=== PATIENT | female | born 1965 | race Caucasian/White ===

== ENCOUNTER 2017-12-31 05:44 | Emergency (ER) | payer MEDICAID, OTHER ==
[~2017-12-31] VITALS: Ht 165.1 cm; Wt 84.8 kg
[2017-12-31 05:48] VITALS: BP 166/79
[2017-12-31 06:37] LABS: BASOPHILS % (AUTO) 0.4 % (0-1); EOSINOPHILS # (AUTO) 0.1 X10'3 (0-0.9); EOSINOPHILS % (AUTO) 0.6 % (0-6); HEMATOCRIT 29.1 % (35.0-45.0); LYMPHOCYTES % (AUTO) 20.6 % (21-51); MEAN CORPUSCULAR HEMOGLOBIN 30.7 PG (27.0-31.0); MEAN CORPUSCULAR HGB CONC 34.2 % (33.0-36.5); MEAN CORPUSCULAR VOLUME 89.8 FL (78-98); MEAN PLATELET VOLUME 7.1 FL (7.4-10.4); MONOCYTES # (AUTO) 0.9 X10'3 (0-0.9); MONOCYTES % (AUTO) 9.3 % (2-12); NEUTROPHILS # (AUTO) 6.8 X10'3 (1.8-7.7); NEUTROPHILS % (AUTO) 69.1 % (42-75); PLATELET COUNT 370 X10'3 (140-440); RED BLOOD COUNT 3.25 X10'6 (4.20-5.60); RED CELL DISTRIBUTION WIDTH 12.9 % (11.5-14.5); WHITE BLOOD COUNT 9.9 X10'3 (4.5-11.0)
[2017-12-31 06:45] LABS: ALANINE AMINOTRANSFERASE 31 U/L (12-78); ALBUMIN 2.8 G/DL (3.4-5.0); ALBUMIN/GLOBULIN RATIO 0.7 (1.1-1.5); ALKALINE PHOSPHATASE 58 IU/L (46-116); ANION GAP 12 (8-16); ASPARTATE AMINO TRANSFERASE 19 U/L (10-37); BILIRUBIN,TOTAL 0.4 MG/DL (0.1-1.0); BLOOD UREA NITROGEN 13 MG/DL (7-18); BUN/CREATININE RATIO 27.7 (6.6-38.0); CALCIUM 9.4 MG/DL (8.5-10.1); CHLORIDE 107 MMOL/L (99-107); CREATININE 0.47 MG/DL (0.40-0.90); GLUCOSE 116 MG/DL (70-104); POTASSIUM 3.3 MMOL/L (3.5-5.1); SODIUM 144 MMOL/L (135-145); TOTAL CARBON DIOXIDE 24.8 MMOL/L (24-32); TOTAL PROTEIN 7.1 G/DL (6.4-8.2); eGFR > 90 ML/MIN
[2017-12-31 06:50] LABS: INR 1.1 INR; PARTIAL THROMBOPLASTIN TIME 25 SECONDS (22-32); PROTHROMBIN TIME 11.4 SECONDS (9.0-12.0)
== END 2017-12-31 10:52 | disposition left against medical advice (07) ==
LOC: ER 05:45
DX: R07.9 Chest pain, unspecified (principal); Z53.21 Procedure and treatment not carried out due to patient leaving prior to being seen by health care provider
CPT/HCPCS: 36415; 71045; 80053; 84484; 85025; 85610; 85730; 93005; 99281

== ENCOUNTER 2018-03-14 11:42 | Inpatient (IN) | payer MEDICAID, OTHER ==
[~2018-03-14] VITALS: Ht 165.1 cm; Wt 91.2 kg
[~2018-03-14 11:42] MED LIST: ALBU2.5V7 NEB; AMIT-189 PO; APIX5TAB3 PO; CARSR60C PO; CEPH500C5 PO; ENAL20TA75 PO; METH-604 PO; METO25TA6 PO
[2018-03-14 11:55] LABS: BASOPHILS % (AUTO) 0.1 % (0-1); EOSINOPHILS # (AUTO) 0.2 X10'3 (0-0.9); HEMOGLOBIN 13.9 g/dl (12.0-16.0); LYMPHOCYTES # (AUTO) 3.5 X10'3 (1.1-4.8); LYMPHOCYTES % (AUTO) 33.5 % (21-51); MEAN CORPUSCULAR HEMOGLOBIN 27.9 PG (27.0-31.0); MEAN CORPUSCULAR HGB CONC 32.3 % (33.0-36.5); MEAN CORPUSCULAR VOLUME 86.5 FL (78-98); MEAN PLATELET VOLUME 7.1 FL (7.4-10.4); MONOCYTES # (AUTO) 0.5 X10'3 (0-0.9); MONOCYTES % (AUTO) 5.1 % (2-12); NEUTROPHILS # (AUTO) 6.2 X10'3 (1.8-7.7); NEUTROPHILS % (AUTO) 59.3 % (42-75); PLATELET COUNT 447 X10'3 (140-440); RED BLOOD COUNT 4.97 X10'6 (4.20-5.60); RED CELL DISTRIBUTION WIDTH 17.1 % (11.5-14.5); WHITE BLOOD COUNT 10.5 X10'3 (4.5-11.0)
[2018-03-14] MEDS ORDERED: normal saline 1000ML IV soln IVB ONE ×3 (12:00→12:25)
[2018-03-14 12:04] LABS: PARTIAL THROMBOPLASTIN TIME 24 SECONDS (22-32); PROTHROMBIN TIME 10.7 SECONDS (9.0-12.0)
[2018-03-14 12:10] LABS: ALANINE AMINOTRANSFERASE 30 U/L (12-78); ALBUMIN 3.5 G/DL (3.4-5.0); ALBUMIN/GLOBULIN RATIO 0.7 (1.1-1.5); ALKALINE PHOSPHATASE 124 IU/L (46-116); ANION GAP 13 (8-16); ASPARTATE AMINO TRANSFERASE 21 U/L (10-37); BILIRUBIN,TOTAL 0.2 MG/DL (0.1-1.0); BLOOD UREA NITROGEN 11 MG/DL (7-18); BUN/CREATININE RATIO 10.4 (6.6-38.0); CALCIUM 9.8 MG/DL (8.5-10.1); CHLORIDE 105 MMOL/L (99-107); CREATININE 1.06 MG/DL (0.40-0.90); GLUCOSE 179 MG/DL (70-104); POTASSIUM 4.6 MMOL/L (3.5-5.1); SODIUM 143 MMOL/L (135-145); TOTAL CARBON DIOXIDE 24.7 MMOL/L (24-32); TOTAL PROTEIN 8.5 G/DL (6.4-8.2); eGFR 54 ML/MIN
[2018-03-14] MEDS ORDERED: ibuprofen tablet 400 MG TABLET PO ONE (13:00)
[2018-03-14] MEDS ORDERED: NORMAL SALINE IV ONE ×2 (13:25)
[2018-03-14] MEDS ORDERED: ondansetron/PF 4mg/2ml inj IV ONE (13:25)
[2018-03-14] MEDS ORDERED: HUMAN RECOMBINANT IV ONE ×2 (13:25)
[2018-03-14] MEDS ORDERED: calcium chloride 100 MG/1 ML inj IV ONE (13:25)
[2018-03-14] MEDS ORDERED: GLUCAGON IV ONE ×2 (13:25)
[2018-03-14] MEDS ORDERED: calcium chloride inj. 1,000 MG in normal saline 100ml IV soln 90 ML IV ONE (13:30)
[2018-03-14] MEDS ORDERED: ondansetron/PF 4mg/2ml inj IV PRN (13:40)
[2018-03-14] MEDS ORDERED: HYDROcodone/acetaminophen 5mg/325mg tablet PO PRN (13:40)
[2018-03-14] MEDS ORDERED: bisacodyl 10mg suppository rectal RC PRN (13:40)
[2018-03-14] MEDS ORDERED: DOPamine 400mg/D5W 250ml 250 ML IV PRN (13:40)
[2018-03-14] MEDS ORDERED: acetaminophen 325mg tablet PO PRN ×2 (13:40)
[2018-03-14] MEDS ORDERED: ipratropium/albuterol 3ml nebule NEB PRN (13:40)
[2018-03-14] MEDS ORDERED: enoxaparin 40mg/0.4ml syringe SUBCUT SCH (13:40)
[2018-03-14] MEDS ORDERED: potassium Cl 20 mEq SR tablet PO PRN ×2 (13:40)
[2018-03-14] MEDS ORDERED: HYDROcodone/acetaminophen 10/325mg tab PO PRN (13:40)
[2018-03-14] MEDS ORDERED: potassium Cl 40MEQ/NS 500ml 500 ML IV PRN ×2 (13:40)
[2018-03-14] MEDS ORDERED: ENAL20TA (14:21)
[2018-03-14] MEDS ORDERED: ALBU18HF2 (14:21)
[2018-03-14] MEDS ORDERED: FURO20TA4 PO (14:21)
[2018-03-14] MEDS ORDERED: POTA10TA15 PO (14:21)
[2018-03-14] MEDS ORDERED: METH10TA6 (14:21)
[2018-03-14] MEDS ORDERED: DILT60TA3 (14:21)
[2018-03-14 15:00] VITALS: BP 95/65
[2018-03-14 16:00] VITALS: BP 102/62
[2018-03-14 17:00] VITALS: BP 112/62
[2018-03-14 18:00] VITALS: BP 104/71
[2018-03-14 19:00] VITALS: BP 122/76
[2018-03-14] MEDS ORDERED: docusate sod 100mg capsule PO SCH (20:00)
[2018-03-15] MEDS ORDERED: K, MAG and/or Phos replacement - Verify level? MC SCH (08:00)
[2018-03-16] MEDS ORDERED: lactulose 20gm/30ml cup PO PRN (13:40)
== END 2018-03-14 23:09 | disposition left against medical advice (07) | DRG 201 ==
LOC: ER 11:42 → ED HOLD 13:40 → CICU 2S 14:43
PROVIDERS: ADMIT Internal Medicine Critical Care Medicine; ATTEND Internal Medicine Critical Care Medicine
DX: I48.92 Unspecified atrial flutter (principal); R57.0 Cardiogenic shock; R57.1 Hypovolemic shock; I11.0 Hypertensive heart disease with heart failure; E05.91 Thyrotoxicosis, unspecified with thyrotoxic crisis or storm; I50.9 Heart failure, unspecified; R00.1 Bradycardia, unspecified; F17.290 Nicotine dependence, other tobacco product, uncomplicated; Z53.21 Procedure and treatment not carried out due to patient leaving prior to being seen by health care provider; I48.91 Unspecified atrial fibrillation; Z88.8 Allergy status to other drugs, medicaments and biological substances; Z79.899 Other long term (current) drug therapy
CPT/HCPCS: 36415; 71045; 80053; 82948; 84439; 84443; 84484; 85025; 85610; 85730; 93005; 93306; 99291; 99292; A6213; J1610; J1650; J2405; J7030